=== PATIENT | female | born 1940 | race Caucasian/White ===

== ENCOUNTER 2020-04-22 20:12 | Inpatient (IN) | payer MEDICARE, OTHER ==
[~2020-04-22] VITALS: Ht 170.2 cm; Wt 140.2 kg
[2020-04-22 20:49] LABS: BASOPHILS % 0.4 % (0.0-1.0); HEMOGLOBIN 11.4 g/dL (12.0-16.0); LYMPHOCYTES % 19.4 % (18.0-39.1); MEAN CORPUSCULAR HEMOGLOBIN 33.6 pg (28-32); MEAN CORPUSCULAR HGB CONC 32.6 g/dL (31-35); MEAN CORPUSCULAR VOLUME 103.2 fL (81-99); MONOCYTES # (AUTO) 0.7 (0.2-0.8); NEUTROPHILS # (AUTO) 3.4 (2.1-6.9); NEUTROPHILS % 66.8 % (38.7-80.0); PLATELET COUNT 190 x10e3/uL (140-360); RED BLOOD COUNT 3.39 x10e6/uL (3.6-5.1); RED CELL DISTRIBUTION WIDTH 13.5 % (11.7-14.4)
[2020-04-22 21:06] LABS: ALANINE AMINOTRANSFERASE 20 IU/L (0-55); ALBUMIN 2.5 g/dL (3.5-5.0); ALBUMIN/GLOBULIN RATIO 0.8 (0.8-2.0); ALKALINE PHOSPHATASE 51 IU/L (40-150); ANION GAP 11.6 mmol/L (8-16); BLOOD UREA NITROGEN 15 mg/dL (7-26); BUN/CREATININE RATIO 20 (6-25); CALCIUM 8.9 mg/dL (8.4-10.2); CARBON DIOXIDE 32 mmol/L (22-29); CHLORIDE 102 mmol/L (98-107); CREATININE, SERUM 0.74 mg/dL (0.57-1.11); EST GLOMERULAR FILTRATION RATE > 60 ML/MIN (60-); GLUCOSE 139 mg/dL (74-118); POTASSIUM 3.6 mmol/L (3.5-5.1); SODIUM 142 mmol/L (136-145)
[2020-04-22] MEDS ORDERED: SODIUM CHLORIDE 0.9% 1000ML 1,000 ML IV ONE (21:30)
[2020-04-22] MEDS ORDERED: ONDANSETRON HCL INJ 2MG/ML 2ML 2 MG/ML VIAL IV PRN (21:30)
[2020-04-22] MEDS ORDERED: ACETAMINOPHEN 325 MG TAB PO PRN (21:30)
[2020-04-22] MEDS: PIPER-TAZ 3.375 GM 50 ML IV SCH (21:50)
[2020-04-22] MEDS: VANCOMYCIN 1GM/NS 250 ML 250 ML IV SCH (22:30)
[2020-04-22 22:50] VITALS: BP 109/88
[2020-04-23] VITALS (8 sets, daily range): BP systolic 113–140; BP diastolic 46–85
[2020-04-23] MEDS ORDERED: OMEPRAZOLE40 MG (02:07)
[2020-04-23] MEDS ORDERED: premarin (02:07)
[2020-04-23] MEDS ORDERED: SYNTHROID50 MCG PO (02:07)
[2020-04-23] MEDS ORDERED: [UNRECOGNIZED DRUG - OTHER] PO (02:07)
[2020-04-23] MEDS ORDERED: POTASSIUM CHLO10 ME1 PO (02:07)
[2020-04-23] MEDS ORDERED: FUROSEMIDE40 MG PO (02:07)
[2020-04-23] MEDS ORDERED: CEPHALEXIN500 MG PO (02:07)
[2020-04-23] MEDS ORDERED: VITAMIN D3 COM1 EACH PO (02:07)
[2020-04-23] MEDS ORDERED: LISINOPRIL10 MG PO (02:07)
[2020-04-23] MEDS ORDERED: METOPROLOL SUCC25 MG PO (02:07)
[2020-04-23] MEDS ORDERED: B-121000 MC1 PO (02:07)
[2020-04-23] MEDS ORDERED: CENTRUM SILVER1 EAC3 PO (02:07)
[2020-04-23] MEDS ORDERED: MYRBETRIQ50 MG (02:07)
[2020-04-23] MEDS ORDERED: TOVIAZ4 MG PO (02:07)
[2020-04-23] MEDS ORDERED: ZETIA10 MG PO (02:07)
[2020-04-23 04:56] LABS: BASOPHILS % 0.4 % (0.0-1.0); HEMOGLOBIN 11.2 g/dL (12.0-16.0); LYMPHOCYTES # (AUTO) 1.3 (1.0-3.2); LYMPHOCYTES % 26.4 % (18.0-39.1); MEAN CORPUSCULAR HEMOGLOBIN 33.8 pg (28-32); MEAN CORPUSCULAR HGB CONC 32.9 g/dL (31-35); MEAN CORPUSCULAR VOLUME 102.7 fL (81-99); MONOCYTES # (AUTO) 0.7 (0.2-0.8); MONOCYTES % 14.4 % (4.4-11.3); NEUTROPHILS # (AUTO) 2.9 (2.1-6.9); NEUTROPHILS % 58.4 % (38.7-80.0); PLATELET COUNT 177 x10e3/uL (140-360); RED BLOOD COUNT 3.31 x10e6/uL (3.6-5.1); RED CELL DISTRIBUTION WIDTH 13.5 % (11.7-14.4)
[2020-04-23 05:15] LABS: ALANINE AMINOTRANSFERASE 19 IU/L (0-55); ALBUMIN 2.5 g/dL (3.5-5.0); ALBUMIN/GLOBULIN RATIO 0.9 (0.8-2.0); ALKALINE PHOSPHATASE 54 IU/L (40-150); ANION GAP 10.4 mmol/L (8-16); BLOOD UREA NITROGEN 14 mg/dL (7-26); BUN/CREATININE RATIO 21 (6-25); CALCIUM 8.5 mg/dL (8.4-10.2); CARBON DIOXIDE 31 mmol/L (22-29); CHLORIDE 104 mmol/L (98-107); CREATININE, SERUM 0.66 mg/dL (0.57-1.11); EST GLOMERULAR FILTRATION RATE > 60 ML/MIN (60-); GLUCOSE 85 mg/dL (74-118); POTASSIUM 3.4 mmol/L (3.5-5.1); SODIUM 142 mmol/L (136-145)
[2020-04-23] MEDS: PIPER-TAZ 3.375 GM 50 ML IV SCH ×3 (05:35→21:52)
[2020-04-23] MEDS ORDERED: TRAMADOL HCL 50 MG TAB PO PRN (07:15)
[2020-04-23] MEDS ORDERED: POTASSIUM CHLORIDE 10MEQ EA PO ONE ×2 (08:00→20:00)
[2020-04-23] MEDS: VANCOMYCIN 1GM/NS 250 ML 250 ML IV SCH ×2 (11:10→22:40)
[2020-04-23] MEDS ORDERED: SODIUM CHLORIDE 0.9% 250ML 250 ML ONE (11:28)
[2020-04-23] MEDS ORDERED: ASPIRIN81 MG PO (19:13)
[2020-04-23] MEDS ORDERED: HYDROXYCHLOROQ200 MG PO (19:19)
[2020-04-23] MEDS ORDERED: SERTRALINE HCL100 MG PO (19:19)
[2020-04-23] MEDS ORDERED: LASIX40 MG PO (19:21)
[2020-04-24] VITALS (8 sets, daily range): BP systolic 121–139; BP diastolic 76–93
[2020-04-24] MEDS ORDERED: LEVOTHYROXINE75 MCG PO (03:57)
[2020-04-24] MEDS ORDERED: CEPHALEXIN250 M1 PO (03:59)
[2020-04-24] MEDS: PIPER-TAZ 3.375 GM 50 ML IV SCH ×3 (05:07→21:48)
[2020-04-24] MEDS: LEVOTHYROXINE SODIUM 75 MCG TAB PO SCH (05:07)
[2020-04-24 05:12] LABS: BASOPHILS % 0.6 % (0.0-1.0); HEMATOCRIT 34.7 % (34.2-44.1); HEMOGLOBIN 11.4 g/dL (12.0-16.0); LYMPHOCYTES # (AUTO) 1.3 (1.0-3.2); LYMPHOCYTES % 25.6 % (18.0-39.1); MEAN CORPUSCULAR HEMOGLOBIN 34.2 pg (28-32); MEAN CORPUSCULAR HGB CONC 32.9 g/dL (31-35); MEAN CORPUSCULAR VOLUME 104.2 fL (81-99); MONOCYTES # (AUTO) 0.7 (0.2-0.8); MONOCYTES % 12.9 % (4.4-11.3); NEUTROPHILS # (AUTO) 3.1 (2.1-6.9); NEUTROPHILS % 60.5 % (38.7-80.0); PLATELET COUNT 169 x10e3/uL (140-360); RED BLOOD COUNT 3.33 x10e6/uL (3.6-5.1); RED CELL DISTRIBUTION WIDTH 13.4 % (11.7-14.4)
[2020-04-24 05:40] LABS: ANION GAP 12.6 mmol/L (8-16); BLOOD UREA NITROGEN 15 mg/dL (7-26); BUN/CREATININE RATIO 22 (6-25); CALCIUM 8.2 mg/dL (8.4-10.2); CARBON DIOXIDE 29 mmol/L (22-29); CHLORIDE 104 mmol/L (98-107); CREATININE, SERUM 0.68 mg/dL (0.57-1.11); EST GLOMERULAR FILTRATION RATE > 60 ML/MIN (60-); GLUCOSE 85 mg/dL (74-118); POTASSIUM 3.6 mmol/L (3.5-5.1); SODIUM 142 mmol/L (136-145)
[2020-04-24] MEDS: OMEPRAZOLE 20 MG CAP PO SCH (10:59)
[2020-04-24] MEDS: LISINOPRIL 20 MG TAB PO SCH (11:01)
[2020-04-24] MEDS: METOPROLOL SUCCINATE 25 MG TAB XL PO SCH (11:02)
[2020-04-24] MEDS: EZETIMIBE 10 MG TAB PO SCH (11:02)
[2020-04-24] MEDS: SERTRALINE HCL 100 MG TAB PO SCH (11:03)
[2020-04-24] MEDS: FUROSEMIDE 40 MG TAB PO SCH (11:42)
[2020-04-24] MEDS: VANCOMYCIN 1GM/NS 250 ML 250 ML IV SCH ×2 (11:43→23:30)
[2020-04-25] VITALS (9 sets, daily range): BP systolic 110–134; BP diastolic 59–92
[2020-04-25 05:40] LABS: ANION GAP 11.3 mmol/L (8-16); BLOOD UREA NITROGEN 11 mg/dL (7-26); BUN/CREATININE RATIO 17 (6-25); CALCIUM 8.2 mg/dL (8.4-10.2); CARBON DIOXIDE 31 mmol/L (22-29); CHLORIDE 103 mmol/L (98-107); CREATININE, SERUM 0.65 mg/dL (0.57-1.11); EST GLOMERULAR FILTRATION RATE > 60 ML/MIN (60-); GLUCOSE 85 mg/dL (74-118); POTASSIUM 3.3 mmol/L (3.5-5.1); SODIUM 142 mmol/L (136-145)
[2020-04-25] MEDS: PIPER-TAZ 3.375 GM 50 ML IV SCH ×3 (05:43→21:09)
[2020-04-25] MEDS: LEVOTHYROXINE SODIUM 75 MCG TAB PO SCH (05:43)
[2020-04-25] MEDS: OMEPRAZOLE 20 MG CAP PO SCH (07:30)
[2020-04-25] MEDS: SERTRALINE HCL 100 MG TAB PO SCH (09:00)
[2020-04-25] MEDS: LISINOPRIL 20 MG TAB PO SCH (09:00)
[2020-04-25] MEDS: EZETIMIBE 10 MG TAB PO SCH (09:00)
[2020-04-25] MEDS: FUROSEMIDE 40 MG TAB PO SCH (09:00)
[2020-04-25] MEDS: METOPROLOL SUCCINATE 25 MG TAB XL PO SCH (09:00)
[2020-04-25] MEDS: VANCOMYCIN 1GM/NS 250 ML 250 ML IV SCH ×2 (11:00→23:00)
[2020-04-25] MEDS ORDERED: POTASSIUM CHLORIDE 20 MEQ TAB CR PO ONE (13:52)
[2020-04-26] VITALS (7 sets, daily range): BP systolic 111–126; BP diastolic 55–90
[2020-04-26 05:53] LABS: ANION GAP 11.4 mmol/L (8-16); BLOOD UREA NITROGEN 10 mg/dL (7-26); BUN/CREATININE RATIO 16 (6-25); CALCIUM 8.1 mg/dL (8.4-10.2); CARBON DIOXIDE 32 mmol/L (22-29); CHLORIDE 103 mmol/L (98-107); CREATININE, SERUM 0.62 mg/dL (0.57-1.11); EST GLOMERULAR FILTRATION RATE > 60 ML/MIN (60-); GLUCOSE 83 mg/dL (74-118); POTASSIUM 3.4 mmol/L (3.5-5.1); SODIUM 143 mmol/L (136-145)
[2020-04-26] MEDS: PIPER-TAZ 3.375 GM 50 ML IV SCH ×3 (06:10→21:51)
[2020-04-26] MEDS: LEVOTHYROXINE SODIUM 75 MCG TAB PO SCH (06:10)
[2020-04-26] MEDS: OMEPRAZOLE 20 MG CAP PO SCH (07:30)
[2020-04-26] MEDS: FUROSEMIDE 40 MG TAB PO SCH (08:47)
[2020-04-26] MEDS: LISINOPRIL 20 MG TAB PO SCH (08:47)
[2020-04-26] MEDS: METOPROLOL SUCCINATE 25 MG TAB XL PO SCH (08:48)
[2020-04-26] MEDS: SERTRALINE HCL 100 MG TAB PO SCH (08:48)
[2020-04-26] MEDS: EZETIMIBE 10 MG TAB PO SCH (08:48)
[2020-04-26] MEDS: VANCOMYCIN 1GM/NS 250 ML 250 ML IV SCH ×2 (11:00→23:22)
[2020-04-26] MEDS ORDERED: POTASSIUM CHLORIDE 20 MEQ TAB CR PO NR (13:40)
[2020-04-27] VITALS (8 sets, daily range): BP systolic 96–123; BP diastolic 58–90
[2020-04-27] MEDS: LEVOTHYROXINE SODIUM 75 MCG TAB PO SCH (05:46)
[2020-04-27] MEDS: PIPER-TAZ 3.375 GM 50 ML IV SCH ×3 (05:46→21:11)
[2020-04-27 06:54] LABS: BASOPHILS % 0.5 % (0.0-1.0); HEMATOCRIT 36.5 % (34.2-44.1); HEMOGLOBIN 12.1 g/dL (12.0-16.0); LYMPHOCYTES # (AUTO) 1.2 (1.0-3.2); LYMPHOCYTES % 20.8 % (18.0-39.1); MEAN CORPUSCULAR HGB CONC 33.2 g/dL (31-35); MEAN CORPUSCULAR VOLUME 102.5 fL (81-99); MONOCYTES # (AUTO) 0.8 (0.2-0.8); MONOCYTES % 13.1 % (4.4-11.3); NEUTROPHILS # (AUTO) 3.7 (2.1-6.9); NEUTROPHILS % 65.3 % (38.7-80.0); PLATELET COUNT 177 x10e3/uL (140-360); RED BLOOD COUNT 3.56 x10e6/uL (3.6-5.1); RED CELL DISTRIBUTION WIDTH 13.3 % (11.7-14.4)
[2020-04-27 07:12] LABS: ANION GAP 11.1 mmol/L (8-16); BLOOD UREA NITROGEN 11 mg/dL (7-26); BUN/CREATININE RATIO 17 (6-25); CALCIUM 8.1 mg/dL (8.4-10.2); CARBON DIOXIDE 34 mmol/L (22-29); CHLORIDE 100 mmol/L (98-107); CREATININE, SERUM 0.63 mg/dL (0.57-1.11); EST GLOMERULAR FILTRATION RATE > 60 ML/MIN (60-); GLUCOSE 87 mg/dL (74-118); POTASSIUM 3.1 mmol/L (3.5-5.1); SODIUM 142 mmol/L (136-145)
[2020-04-27] MEDS: OMEPRAZOLE 20 MG CAP PO SCH (07:30)
[2020-04-27] MEDS: SERTRALINE HCL 100 MG TAB PO SCH (09:00)
[2020-04-27] MEDS: LISINOPRIL 20 MG TAB PO SCH (09:00)
[2020-04-27] MEDS: METOPROLOL SUCCINATE 25 MG TAB XL PO SCH (09:00)
[2020-04-27] MEDS: EZETIMIBE 10 MG TAB PO SCH (09:00)
[2020-04-27] MEDS: FUROSEMIDE 40 MG TAB PO SCH (09:00)
[2020-04-27] MEDS: VANCOMYCIN 1GM/NS 250 ML 250 ML IV SCH ×2 (11:00→23:00)
[2020-04-27 11:30] LABS: CHOL/HDL RATIO 3.1 (3.0-3.6); MAGNESIUM 1.3 MG/DL (1.3-2.1); PHOSPHORUS 3.2 MG/DL (2.3-4.7)
[2020-04-27 11:52] LABS: THYROID STIMULATING HORMONE 2.563 uIU/mL (0.350-4.940)
[2020-04-27] MEDS ORDERED: MAGNESIUM SULFATE 2GM/50ML 50 ML IV ONE ×2 (13:30→15:30)
[2020-04-27] MEDS ORDERED: POTASSIUM CHLORIDE 20 MEQ TAB CR PO ONE (17:30)
[2020-04-28] VITALS (7 sets, daily range): BP systolic 110–136; BP diastolic 66–83
[2020-04-28 05:21] LABS: BASOPHILS % 0.5 % (0.0-1.0); HEMATOCRIT 36.3 % (34.2-44.1); LYMPHOCYTES # (AUTO) 1.3 (1.0-3.2); LYMPHOCYTES % 22.5 % (18.0-39.1); MEAN CORPUSCULAR HEMOGLOBIN 34.4 pg (28-32); MEAN CORPUSCULAR HGB CONC 33.1 g/dL (31-35); MONOCYTES # (AUTO) 0.8 (0.2-0.8); MONOCYTES % 13.2 % (4.4-11.3); NEUTROPHILS # (AUTO) 3.8 (2.1-6.9); NEUTROPHILS % 63.5 % (38.7-80.0); PLATELET COUNT 167 x10e3/uL (140-360); RED BLOOD COUNT 3.49 x10e6/uL (3.6-5.1); RED CELL DISTRIBUTION WIDTH 13.5 % (11.7-14.4)
[2020-04-28] MEDS: LEVOTHYROXINE SODIUM 75 MCG TAB PO SCH (05:22)
[2020-04-28] MEDS: PIPER-TAZ 3.375 GM 50 ML IV SCH ×3 (05:22→22:00)
[2020-04-28 05:47] LABS: ANION GAP 10.4 mmol/L (8-16); BLOOD UREA NITROGEN 13 mg/dL (7-26); BUN/CREATININE RATIO 21 (6-25); CALCIUM 8.1 mg/dL (8.4-10.2); CARBON DIOXIDE 35 mmol/L (22-29); CHLORIDE 100 mmol/L (98-107); CREATININE, SERUM 0.61 mg/dL (0.57-1.11); EST GLOMERULAR FILTRATION RATE > 60 ML/MIN (60-); GLUCOSE 83 mg/dL (74-118); MAGNESIUM 1.8 MG/DL (1.3-2.1); POTASSIUM 3.4 mmol/L (3.5-5.1); SODIUM 142 mmol/L (136-145)
[2020-04-28] MEDS: METOPROLOL SUCCINATE 25 MG TAB XL PO SCH (08:18)
[2020-04-28] MEDS: OMEPRAZOLE 20 MG CAP PO SCH (08:18)
[2020-04-28] MEDS: LISINOPRIL 20 MG TAB PO SCH (08:18)
[2020-04-28] MEDS: SERTRALINE HCL 100 MG TAB PO SCH (08:18)
[2020-04-28] MEDS: EZETIMIBE 10 MG TAB PO SCH (08:18)
[2020-04-28] MEDS: FUROSEMIDE 40 MG TAB PO SCH (08:18)
[2020-04-28] MEDS: VANCOMYCIN 1GM/NS 250 ML 250 ML IV SCH ×2 (11:37→23:00)
[2020-04-28] MEDS ORDERED: POTASSIUM CHLORIDE 20 MEQ TAB CR PO STA (23:32)
[2020-04-29] VITALS: BP 123/73
[2020-04-29 04:00] VITALS: BP 112/73
[2020-04-29 05:13] LABS: BASOPHILS % 0.5 % (0.0-1.0); HEMATOCRIT 35.8 % (34.2-44.1); HEMOGLOBIN 11.6 g/dL (12.0-16.0); LYMPHOCYTES # (AUTO) 1.4 (1.0-3.2); LYMPHOCYTES % 23.5 % (18.0-39.1); MEAN CORPUSCULAR HEMOGLOBIN 33.7 pg (28-32); MEAN CORPUSCULAR HGB CONC 32.4 g/dL (31-35); MEAN CORPUSCULAR VOLUME 104.1 fL (81-99); MONOCYTES # (AUTO) 0.7 (0.2-0.8); MONOCYTES % 12.4 % (4.4-11.3); NEUTROPHILS # (AUTO) 3.7 (2.1-6.9); NEUTROPHILS % 62.9 % (38.7-80.0); PLATELET COUNT 160 x10e3/uL (140-360); RED BLOOD COUNT 3.44 x10e6/uL (3.6-5.1); RED CELL DISTRIBUTION WIDTH 13.2 % (11.7-14.4)
[2020-04-29 05:42] LABS: ANION GAP 9.4 mmol/L (8-16); BLOOD UREA NITROGEN 12 mg/dL (7-26); BUN/CREATININE RATIO 20 (6-25); CALCIUM 7.9 mg/dL (8.4-10.2); CARBON DIOXIDE 36 mmol/L (22-29); CHLORIDE 100 mmol/L (98-107); EST GLOMERULAR FILTRATION RATE > 60 ML/MIN (60-); GLUCOSE 86 mg/dL (74-118); POTASSIUM 3.4 mmol/L (3.5-5.1); SODIUM 142 mmol/L (136-145)
[2020-04-29] MEDS: LEVOTHYROXINE SODIUM 75 MCG TAB PO SCH (05:58)
[2020-04-29] MEDS: PIPER-TAZ 3.375 GM 50 ML IV SCH (05:58)
[2020-04-29 08:12] VITALS: BP 131/75
[2020-04-29 08:25] VITALS: BP 131/75
[2020-04-29] MEDS: OMEPRAZOLE 20 MG CAP PO SCH (09:53)
[2020-04-29] MEDS: FUROSEMIDE 40 MG TAB PO SCH (09:53)
[2020-04-29] MEDS: METOPROLOL SUCCINATE 25 MG TAB XL PO SCH (09:54)
[2020-04-29] MEDS: EZETIMIBE 10 MG TAB PO SCH (09:54)
[2020-04-29] MEDS: LISINOPRIL 20 MG TAB PO SCH (09:54)
[2020-04-29] MEDS: SERTRALINE HCL 100 MG TAB PO SCH (09:54)
[2020-04-29] MEDS ORDERED: POTASSIUM CHLORIDE 10MEQ EA PO ONE ×2 (11:15→15:30)
[2020-04-29] MEDS ORDERED: CEFAZOLIN SOD 1 GM/NS 50ML 50 ML IV SCH (11:30)
[2020-04-29 11:48] VITALS: BP 99/67
[2020-04-29 16:29] VITALS: BP 123/77
== END 2020-04-29 17:56 | DRG 603 ==
LOC: ER 20:16 → ERHOLD 21:41 → MED/SURG2 22:50 → INTOOBSV 04-23 08:26 → OBSVTOIN 04-23 08:26
PROVIDERS: ADMIT Internal Medicine; ATTEND Internal Medicine
PROC: 02HV33Z Insertion of Infusion Device into Superior Vena Cava, Percutaneous Approach (ICD-10-PCS; principal; 2020-04-29)
PROC: B548ZZA Ultrasonography of Superior Vena Cava, Guidance (ICD-10-PCS; 2020-04-29)
DX: L03.116 Cellulitis of left lower limb (principal); Z68.42 Body mass index [BMI] 45.0-49.9, adult; E03.9 Hypothyroidism, unspecified; E66.01 Morbid (severe) obesity due to excess calories; I10 Essential (primary) hypertension; I89.0 Lymphedema, not elsewhere classified; E87.6 Hypokalemia; K21.9 Gastro-esophageal reflux disease without esophagitis; E78.5 Hyperlipidemia, unspecified; F41.9 Anxiety disorder, unspecified; Z91.81 History of falling; B96.4 Proteus (mirabilis) (morganii) as the cause of diseases classified elsewhere; E83.42 Hypomagnesemia; F32.9 Major depressive disorder, single episode, unspecified; R53.81 Other malaise; Z20.828 Contact with and (suspected) exposure to other viral communicable diseases
CPT/HCPCS: 36415; 36569; 71045; 80048; 80053; 80061; 80202; 83036; 83605; 83735; 84100; 84443; 85025; 87040; 87071; 87186; 87205; 93005; 93970; 97139; 99251; 99284; G0378; J0690; J2543; J3370; J3475; J7030; J7050; U0002

== ENCOUNTER 2020-05-05 18:05 | Observation (INO) | payer MEDICARE ==
[~2020-05-05] VITALS: Ht 170.2 cm; Wt 140.2 kg
[~2020-05-05 18:05] MED LIST: ASPIRIN81 MG PO; B-121000 MC1 PO; CENTRUM SILVER1 EAC3 PO; CEPHALEXIN250 M1 PO; CEPHALEXIN500 MG PO; FUROSEMIDE40 MG PO; HYDROXYCHLOROQ200 MG PO; LASIX40 MG PO; LEVOTHYROXINE75 MCG PO; LISINOPRIL10 MG PO; METOPROLOL SUCC25 MG PO; MYRBETRIQ50 MG; OMEPRAZOLE40 MG; POTASSIUM CHLO10 ME1 PO; SERTRALINE HCL100 MG PO; SYNTHROID50 MCG PO; TOVIAZ4 MG PO; VITAMIN D3 COM1 EACH PO; ZETIA10 MG PO; [UNRECOGNIZED DRUG - OTHER] PO; premarin
[2020-05-05] MEDS ORDERED: DEXAMETHASONE SOD PHOS 10 MG/1 ML VIAL IV ONE (18:15)
[2020-05-05] MEDS ORDERED: ASPIRIN 81 MG CHEW TAB PO ONE (18:15)
[2020-05-05] MEDS ORDERED: AZITHROMYCIN 500MG/NS 250 ML 250 ML IV STA (18:52)
[2020-05-05 19:07] LABS: BASOPHILS % 0.5 % (0.0-1.0); HEMATOCRIT 35.7 % (34.2-44.1); LYMPHOCYTES # (AUTO) 1.7 (1.0-3.2); LYMPHOCYTES % 30.5 % (18.0-39.1); MEAN CORPUSCULAR HEMOGLOBIN 34.5 pg (28-32); MEAN CORPUSCULAR HGB CONC 33.6 g/dL (31-35); MEAN CORPUSCULAR VOLUME 102.6 fL (81-99); MONOCYTES # (AUTO) 0.8 (0.2-0.8); MONOCYTES % 14.6 % (4.4-11.3); NEUTROPHILS % 54.2 % (38.7-80.0); PLATELET COUNT 158 x10e3/uL (140-360); RED BLOOD COUNT 3.48 x10e6/uL (3.6-5.1); RED CELL DISTRIBUTION WIDTH 13.5 % (11.7-14.4)
[2020-05-05 19:24] LABS: ALBUMIN 2.3 g/dL (3.5-5.0); ALBUMIN/GLOBULIN RATIO 0.7 (0.8-2.0); ALKALINE PHOSPHATASE 53 IU/L (40-150); ANION GAP 9.4 mmol/L (8-16); BLOOD UREA NITROGEN 19 mg/dL (7-26); BUN/CREATININE RATIO 25 (6-25); CALCIUM 8.2 mg/dL (8.4-10.2); CARBON DIOXIDE 38 mmol/L (22-29); CHLORIDE 97 mmol/L (98-107); CREATINE KINASE 50 IU/L (29-168); CREATININE, SERUM 0.77 mg/dL (0.57-1.11); EST GLOMERULAR FILTRATION RATE > 60 ML/MIN (60-); GLUCOSE 91 mg/dL (74-118); POTASSIUM 3.4 mmol/L (3.5-5.1); SODIUM 141 mmol/L (136-145)
[2020-05-05 19:28] LABS: ALANINE AMINOTRANSFERASE < 6 IU/L (0-55)
[2020-05-06 06:22] LABS: BASOPHILS % 0.3 % (0.0-1.0); HEMATOCRIT 37.9 % (34.2-44.1); HEMOGLOBIN 12.7 g/dL (12.0-16.0); LYMPHOCYTES # (AUTO) 0.5 (1.0-3.2); LYMPHOCYTES % 14.1 % (18.0-39.1); MEAN CORPUSCULAR HGB CONC 33.5 g/dL (31-35); MEAN CORPUSCULAR VOLUME 101.3 fL (81-99); MONOCYTES # (AUTO) 0.1 (0.2-0.8); MONOCYTES % 1.9 % (4.4-11.3); NEUTROPHILS % 83.4 % (38.7-80.0); PLATELET COUNT 168 x10e3/uL (140-360); RED BLOOD COUNT 3.74 x10e6/uL (3.6-5.1)
[2020-05-06 07:32] LABS: ALBUMIN 2.3 g/dL (3.5-5.0); ALBUMIN/GLOBULIN RATIO 0.7 (0.8-2.0); ALKALINE PHOSPHATASE 53 IU/L (40-150); ANION GAP 12.5 mmol/L (8-16); BLOOD UREA NITROGEN 21 mg/dL (7-26); BUN/CREATININE RATIO 30 (6-25); CALCIUM 8.4 mg/dL (8.4-10.2); CARBON DIOXIDE 33 mmol/L (22-29); CHLORIDE 99 mmol/L (98-107); CREATININE, SERUM 0.71 mg/dL (0.57-1.11); EST GLOMERULAR FILTRATION RATE > 60 ML/MIN (60-); GLUCOSE 131 mg/dL (74-118); POTASSIUM 3.5 mmol/L (3.5-5.1); SODIUM 141 mmol/L (136-145)
[2020-05-06 07:35] LABS: ALANINE AMINOTRANSFERASE < 6 IU/L (0-55)
[2020-05-06] MEDS ORDERED: ENOXAPARIN SOD INJ 40 MG/0.4 ML SYR SC SCH (10:00)
[2020-05-06] MEDS ORDERED: FUROSEMIDE INJ 10 MG/ML 4 ML VIAL IV SCH (10:00)
[2020-05-06 10:11] LABS: CHOL/HDL RATIO 3.3 (3.0-3.6)
[2020-05-06 10:31] LABS: THYROID STIMULATING HORMONE 1.369 uIU/mL (0.350-4.940)
[2020-05-06 12:41] LABS: CREATINE KINASE MB 1.1 ng/mL (0-5.0)
[2020-05-06] MEDS ORDERED: EZETIMIBE 10 MG TAB PO SCH (21:00)
[2020-05-07] MEDS ORDERED: METOPROLOL SUCCINATE 25 MG TAB XL PO SCH (09:00)
[2020-05-07] MEDS ORDERED: ASPIRIN 81 MG ENTERIC COATED PO SCH (09:00)
[2020-05-07] MEDS ORDERED: LISINOPRIL 20 MG TAB PO SCH (09:00)
== END 2020-05-06 15:51 | disposition home or self-care (01) ==
LOC: ER 18:11 → ERHOLD 22:39
PROVIDERS: ADMIT Internal Medicine; ATTEND Internal Medicine
DX: R09.02 Hypoxemia (principal); I10 Essential (primary) hypertension; E78.5 Hyperlipidemia, unspecified; K21.9 Gastro-esophageal reflux disease without esophagitis; I11.0 Hypertensive heart disease with heart failure; I50.30 Unspecified diastolic (congestive) heart failure; E66.01 Morbid (severe) obesity due to excess calories; I89.0 Lymphedema, not elsewhere classified; Z96.652 Presence of left artificial knee joint; Z20.822 Contact with and (suspected) exposure to COVID-19; Z68.42 Body mass index [BMI] 45.0-49.9, adult
CPT/HCPCS: 36415 ×2; 71045; 80053 ×2; 80061; 82550 ×2; 82553 ×2; 83880; 84443; 84484 ×2; 85025 ×2; 93306; 99284; G0378 ×2; J0456; J1100; J1650; J1940; U0002 ×2